=== PATIENT | female | born 1935 | race Asian ===

== ENCOUNTER 2021-04-15 17:45 | Emergency (ER) | payer OTHER ==
[~2021-04-15] VITALS: Ht 149.9 cm; Wt 59.0 kg
--- NOTE | 2021-04-15 17:49 | NUR ---
PT BIBIANA TO BED 06 VIA [facility].
[2021-04-15 17:52] VITALS: BP 112/68
--- NOTE | 2021-04-15 17:58 | NUR ---
85 Y/O FEMALE BIBA FROM [facility] C/O BILAT LEG PAIN. PER EMS PT HAS BILAT LEG PAIN X1 MONTH. BASELINE GCS 14. 10/10 PAIN. EDEMA NOTED TO RT LOWER EXTREMITY. MEDHX: DEMENTIA, DM, CVA (R SIDED WEAKNESS), COPD, HLD, BREAST CANCER, OSTEOPOROSIS NKA
--- NOTE | 2021-04-15 18:10 | NUR ---
CALLED [facility] SPOKE WITH THE NURSE EZEKIEL. STATES PT IS HAS BEEN C/O OF BILAT LEG PAIN 08/21. DENIES ANY RECENT FALL OR INJURY AND EDEMA TO THE RT LEG.
--- NOTE | 2021-04-15 18:35 | NUR ---
ULTRASOUND AT BEDSIDE
--- NOTE | 2021-04-15 19:13 | NUR ---
REPORT GIVEN TO CRISTINA LOCKHART FOR CONTINUITY OF CARE
--- NOTE | 2021-04-15 19:13 | NUR ---
Report received from RICHY Castro for continuation of care.
--- NOTE | 2021-04-15 19:14 | NUR ---
Patient resting in bed w eyes closed, respirations even and unlabored, chest expansion symmetrical. Bed locked in lowest position x 1 side rail up. NAD noted, will continue to monitor.
--- NOTE | 2021-04-15 20:00 | NUR ---
Patient laying in bed, locked in lowest position x2 side rail up for patient safety. Denies any pain at the moment. Bilateral lower extremity edema +1. Sensation present in both extremities. Cap refil <3sec. NAD noted, will continue to monitor.
--- NOTE | 2021-04-15 20:42 | NUR ---
LAB at bedside.
[2021-04-15 21:28] LABS: BASOPHILS # (AUTO) 0.1 K/uL (0.00-0.22); BASOPHILS % (AUTO) 0.9 % (0.0-2.0); EOSINOPHILS # (AUTO) 0.5 K/uL (0-0.4); EOSINOPHILS % (AUTO) 6.4 % (0.0-4.0); HEMATOCRIT 35.5 % (36-48); LYMPHOCYTES # (AUTO) 2.1 K/uL (2.5-16.5); LYMPHOCYTES % (AUTO) 28.8 % (20.5-51.1); MEAN CORPUSCULAR HEMOGLOBIN 32 pg (27-31); MEAN CORPUSCULAR HGB CONC 34 g/dL (33-37); MEAN CORPUSCULAR VOLUME 93.8 fL (80-94); MONOCYTES # (AUTO) 0.6 K/uL (0.8-1.0); MONOCYTES % (AUTO) 8.9 % (1.7-9.3); PLATELET COUNT (AUTO) 154 K/uL (140-450); RED BLOOD CELL COUNT(AUTO) 3.78 MIL/uL (4.20-5.40); RED CELL DISTRIBUTION WIDTH 13.2 % (11.6-13.7); WHITE BLOOD COUNT (AUTO) 7.3 K/uL (4.8-10.8)
[2021-04-15 21:46] LABS: ANION GAP 13.7 (8-16); CARBON DIOXIDE 25.6 mmol/L (21-32); CHLORIDE 106 mmol/L (98-107); CREATININE 1.1 mg/dL (0.6-1.3); GLUCOSE 106 mg/dL (74-106); POTASSIUM 4.3 mmol/L (3.5-5.1); SODIUM SERUM 141 mmol/L (136-145); UREA NITROGEN, BLOOD 20 mg/dL (7-18)
[2021-04-15 22:01] LABS: ALBUMIN 3.5 g/dL (3.4-5.0); ASPARTATE AMINOTRANSFERASE 17 U/L (15-37); TOTAL BILIRUBIN 0.2 mg/dL (0.0-1.0)
--- NOTE | 2021-04-16 01:25 | NUR ---
Provided pericare to patient s/p void on diaper.
--- NOTE | 2021-04-16 03:10 | NUR ---
Patient laying supine in bed w eyes closed, HOB slightly elevated. Breathing even and unlabored. NAD noted at this time.
--- NOTE | 2021-04-16 05:15 | NUR ---
Patient resting in bed w eyes closed, HOB elevated, respirations even and unlabored. NAD noted. Will continue to monitor.
--- NOTE | 2021-04-16 07:04 | NUR ---
Called and spoke to Black from [facility] to report patient is discharged and will be transferred back through [facility] between 10:30-10:45am.
--- NOTE | 2021-04-16 07:08 | NUR ---
Report given to RICHY Gilmore for transfer of care.
[2021-04-16 11:24] VITALS: BP 138/45
--- NOTE | 2021-04-16 11:24 | NUR ---
Patient discharged with v/s stable. Written and verbal after care instructions given and explained. Patient picked up by [facility], transported via gurney.
== END 2021-04-16 11:24 ==
LOC: MED 17:45
DX: M79.89 Other specified soft tissue disorders (principal); J44.9 Chronic obstructive pulmonary disease, unspecified; E11.9 Type 2 diabetes mellitus without complications; F03.90 Unspecified dementia, unspecified severity, without behavioral disturbance, psychotic disturbance, mood disturbance, and anxiety; E78.5 Hyperlipidemia, unspecified
CPT/HCPCS: 36415; 80053; 83880; 85025; 93970; 99285

== ENCOUNTER 2021-06-06 06:04 | Emergency (ER) | payer OTHER ==
[~2021-06-06] VITALS: Ht 167.6 cm; Wt 85.7 kg
--- NOTE | 2021-06-06 06:06 | NUR ---
PT BIBA BLS. TAKEN TO BED 9
[2021-06-06 06:09] VITALS: BP 169/103
--- NOTE | 2021-06-06 06:11 | NUR ---
Dr. Byrnes examining patient.
--- NOTE | 2021-06-06 06:15 | NUR ---
85 YO/F BIBA S/P UNWITNESSED FALL PER [facility]. PATIENT C/O ADBDOMINAL PAIN, HEAD PAIN L SIDE, L ARM PAIN, AND R LEG PAIN. PATIENT PRESENTS AOX0, GCS 13, LUNG SOUNDS CLEAR, S1S2 PRESENT, BOWEL SOUNDS PRESENT. PATIENT WOULD NOT ANSWER ALL QUESTIONS, UNABLE TO OBTAIN FULL ASSESSMENT. BULGARIAN DISTRIBUTOR OF DIRECTORIES USED FOR PATIENT ASSESSMNET. PATIENT LAYING IN BED LOCKED IN LOWEST POSITION, X2 SIDERAILS UP FOR PATIENT SAFETY. CONNECTED PATIENT TO MONITOR. VSS. BREATHING EVEN AND UNLABORED. NAD NOTED, WILL CONTINUE TO MONITOR. PMH:COPD, DM, SEE PATIENT CHART FOR FULL PMH NKA: PER CHART
--- NOTE | 2021-06-06 06:52 | NUR ---
PT TAKEN TO CT
--- NOTE | 2021-06-06 07:15 | NUR ---
Pt report given to RICHY Kaiser for transfer of care at this time.
--- NOTE | 2021-06-06 07:36 | NUR ---
NO IV ACCESS WAS STARTED FROM PREVIOUS SHIFT, PT REFUSED 3RD IV START.
--- NOTE | 2021-06-06 08:12 | NUR ---
Lois regalado in [facility] - 06/06/[address] [place] [address] UREÑA NOTIFIED, PT IS STILL ATTEMPTING TO GET OUT OF BED. ORDERED SOFT RESTRAINTS, MORPHINE 1MG IVP, ATIVAN 1MG IVP.
[2021-06-06] MEDS ORDERED: MORPHINE SULFATE 2 MG/ML SYR IVP ONE (08:25)
[2021-06-06] MEDS ORDERED: LORazepam 2 MG/ML VIAL IVP ONE (08:25)
--- NOTE | 2021-06-06 08:30 | NUR ---
Note sabine in ED - 06/06/21 at 0857 by [facility] MORPHINE, ATIVAN AND RESTRAINTS ORDER UNDER WRONG PT. PHARMACY STAFF MADE AWARE.
--- NOTE | 2021-06-06 09:00 | NUR ---
PT DAUGHTER CALLED, UPDATE WAS GIVEN ON PT STATUS. TRANSFERRED TO MOBILE PHONE, PT SPEAKING WITH DAUGHTER.
[2021-06-06 09:44] LABS: BASOPHILS # (AUTO) 0.1 K/uL (0.00-0.22); BASOPHILS % (AUTO) 0.7 % (0.0-2.0); EOSINOPHILS # (AUTO) 0.3 K/uL (0-0.4); EOSINOPHILS % (AUTO) 3.8 % (0.0-4.0); HEMOGLOBIN 11.6 g/dL (12.0-16.0); LYMPHOCYTES # (AUTO) 1.6 K/uL (2.5-16.5); LYMPHOCYTES % (AUTO) 20.6 % (20.5-51.1); MEAN CORPUSCULAR HEMOGLOBIN 32 pg (27-31); MEAN CORPUSCULAR HGB CONC 33 g/dL (33-37); MEAN CORPUSCULAR VOLUME 95.9 fL (80-94); MONOCYTES # (AUTO) 0.6 K/uL (0.8-1.0); MONOCYTES % (AUTO) 7.4 % (1.7-9.3); NEUTROPHILS # (AUTO) 5.4 K/uL (1.8-7.7); NEUTROPHILS % (AUTO) 67.5 % (42.2-75.2); PLATELET COUNT (AUTO) 254 K/uL (140-450); RED BLOOD CELL COUNT(AUTO) 3.64 MIL/uL (4.20-5.40); RED CELL DISTRIBUTION WIDTH 13.4 % (11.6-13.7)
[2021-06-06 10:05] LABS: PROTHROMBIN TIME 10.1 secs (10.8-13.4)
[2021-06-06 10:14] LABS: ALBUMIN 3.2 g/dL (3.4-5.0); ANION GAP 9.2 (8-16); ASPARTATE AMINOTRANSFERASE 14 U/L (15-37); CARBON DIOXIDE 28.1 mmol/L (21-32); CHLORIDE 105 mmol/L (98-107); CREATININE 1.1 mg/dL (0.6-1.3); GLUCOSE 102 mg/dL (74-106); LIPASE 110 U/L (73-393); POTASSIUM 4.3 mmol/L (3.5-5.1); SODIUM SERUM 138 mmol/L (136-145); TOTAL BILIRUBIN 0.3 mg/dL (0.0-1.0); UREA NITROGEN, BLOOD 15 mg/dL (7-18)
--- NOTE | 2021-06-06 10:49 | NUR ---
Patient appears to be resting comfortably in bed. Vital Signs within normal limits. Respirations even and unlabored.
--- NOTE | 2021-06-06 11:27 | NUR ---
PT DC AND SIGNED D/C PAPERS. 2 RNS SIGNED. PT TO AWAIT [facility]SP[facility] BACK TO FACILITY. 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
--- NOTE | 2021-06-06 13:18 | NUR ---
PT RESTING IN BED WITH EVEN AND UNLABORED RESPIRATIONS. BED IN LOWEST POSITION, BRAKES LOCKED, X2 SIDERAILS UP FOR SAFETY. PT ON DIRECTOR OF RETAIL OPERATIONS. VSS. WILL CONTINUE TO MONITOR
--- NOTE | 2021-06-06 14:15 | NUR ---
PT CLEANED AND CHANGED INTO NEW DIAPER AND GOWN.
--- NOTE | 2021-06-06 14:23 | NUR ---
[facility] at bedside.
[2021-06-06 14:28] VITALS: BP 129/50
--- NOTE | 2021-06-06 14:30 | NUR ---
Patient discharged with v/s stable. Written and verbal after care instructions ABOUT HIP PAIN, HEAD INJURY, AND FALL PREVENTION IN THE HOME given and explained. Patient verbalized understanding. Ambulance Transport with to [facility]. All questions addressed prior to discharge. Advised to follow up with PMD.
== END 2021-06-06 11:27 | disposition home or self-care (01) ==
LOC: MED 06:20
DX: S00.93XA Contusion of unspecified part of head, initial encounter (principal); S70.01XA Contusion of right hip, initial encounter; E11.9 Type 2 diabetes mellitus without complications; F03.90 Unspecified dementia, unspecified severity, without behavioral disturbance, psychotic disturbance, mood disturbance, and anxiety; J44.9 Chronic obstructive pulmonary disease, unspecified; E78.5 Hyperlipidemia, unspecified; Z86.73 Personal history of transient ischemic attack (TIA), and cerebral infarction without residual deficits; W01.0XXA Fall on same level from slipping, tripping and stumbling without subsequent striking against object, initial encounter; Y93.89 Activity, other specified; Y92.89 Other specified places as the place of occurrence of the external cause; Y99.8 Other external cause status
CPT/HCPCS: 36415; 70450; 71045; 73502; 80053; 83690; 84484; 85025; 85610; 85730; 93005; 99285